=== PATIENT | male | born 1965 | race Caucasian/White ===

== ENCOUNTER → 2024-06-04 07:07 | Outpatient (REF) | payer MEDICARE, SELFPAY | LOC: MRI 07:07 | PROVIDERS: ATTENDING PHYSICIAN Orthopaedic Surgery Sports Medicine; FAMILY PHYSICIAN Family Medicine | DX: M75.121 Complete rotator cuff tear or rupture of right shoulder, not specified as traumatic (principal) | CPT/HCPCS: 73221 ==